=== PATIENT | female | born 1965 | race American Indian/Alaskan Native ===

== ENCOUNTER 2016-10-27 08:17 | Day surgery (SDC) | payer OTHER ==
--- NOTE | 2016-10-22 10:47 | Anesthesia Consultation ---
Anesthesia Consult and Med Hx Date of service: 10/27/16 - Airway Anesthetic Teeth Evaluation: Good ROM Head & Neck: Adequate Mental/Hyoid Distance: Adequate Mallampati Class: Class II Intubation Access Assessment: Probably Good - Pulmonary Exam CTA: Yes - Cardiac Exam Cardiac Exam: RRR - Pre-Operative Health Status ASA Pre-Surgery Classification: ASA3 Proposed Anesthetic Plan: General - Pulmonary Hx Asthma: Yes ("just a touch" not treated in yrs) - Cardiovascular System Hx Hypertension: Yes (since in her 40s) - Central Nervous System Hx Psychiatric Problems: No - Gastrointestinal Hx Gastroesophageal Reflux Disease: Yes (diet controlled) - Other Systems Hx Alcohol Use: Yes (occas) Hx Cancer: No Hx Obesity: Yes (BMI 48) - Additional Comments Anesthesia Medical History Comments: States she has panic attacks when stuck with needles.
[2016-10-22 10:58] LABS: Hematocrit 36.4 % (30.3-42.9); Hemoglobin 11.9 gm/dl (10.1-14.3); Mean Corpuscular HGB Conc 33 % (30-34); Mean Corpuscular Hemoglobin 28 pg (28-32); Mean Corpuscular Volume 84 fl (79-97); Platelet Count 296 K/mm3 (140-440); Red Blood Count 4.32 M/mm3 (3.65-5.03); Red Cell Distribution Width 14.9 % (13.2-15.2); White Blood Count 8.3 K/mm3 (4.5-11.0)
[2016-10-22 11:07] LABS: Anion Gap 15 mmol/L; Blood Urea Nitrogen 14 mg/dL (7-17); Calcium 8.7 mg/dL (8.4-10.2); Carbon Dioxide 26 mmol/L (22-30); Chloride 100.3 mmol/L (98-107); Glucose 113 mg/dL (65-100); Potassium 3.9 mmol/L (3.6-5.0); Sodium 137 mmol/L (137-145)
--- NOTE | 2016-10-26 16:57 | History and Physical Report ---
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 Operations: Negative Past Surgical History Abnormal PAP: negative Uterine Anomaly: positive fibroids Infection History Hx of STD: None Active Medications (reviewed today): IBUPROFEN 800 MG TABS (IBUPROFEN) 1 po TID (PRN) OXYCODONE-ACETAMINOPHEN 5-325 MG TABS (OXYCODONE-ACETAMINOPHEN) 1-2po q6h VITAMIN D 1000 UNIT TABS (CHOLECALCIFEROL) LOSARTAN POTASSIUM TABS (LOSARTAN POTASSIUM TABS) TRIAMTERENE-HCTZ CAPS (TRIAMTERENE-HCTZ CAPS) VERAPAMIL HCL TABS (VERAPAMIL HCL TABS) Current Allergies (reviewed today): No known allergies Past Medical History: Reviewed history from 10/01/2016 and no changes required: Hypertension torn ligament right shoulder after a fall Family History Summary: Reviewed history and no changes required: 10/26/2016 Aunt - Has Family History Breast Cancer - maternal, menopause - Entered On: 2016 Aunt - Has Family History of Colon Cancer - Maternal great - Entered On: 2016 Other family member - Has No Family History of Biliary Tract Cancer - Entered On : 10/06/2016 Other family member - Has No Family History of Brain Cancer - Entered On: 2016 Other family member - Has No Family History of DVT/PE on OCP - Entered On: 2016 Other family member - Has No Family History of Kidney/Urinary Tract Cancer - Entered On: 10/06/2016 Other family member - Has No Family History of Ovarvian Cancer - Entered On: 10/06 Other family member - Has No Family History of Pancreatic Cancer - Entered On: Other family member - Has No Family History of Stomach Cancer - Entered On: 2016 Other family member - Has No Family History of Small Bowel Cancer - Entered On: 10/06/2016 Other family member - Has No Family History of Uterine Cancer - Entered On: 2016 Social History: Reviewed history from 10/01/2016 and no changes required: Patient is single Smoking History: Patient has never smoked. Risk Factors: Smoked Tobacco Use: Never smoker Alcohol use: yes PAP Smear History: Date of Last PAP Smear: 10/01/2016 Review of Systems General Denies fever, chills, sweats, anorexia, fatigue, weakness, malaise, weight loss and sleep disorder. Complains of abnormal vaginal bleeding. Denies vaginal discharge, incontinence, dysuria, hematuria, urinary frequency, amenorrhea, menorrhagia, pelvic pain, genital sores, decreased libido , painful periods, painful sex, urinary urgency, hot flashes, vaginal dryness, vaginal itching and vaginal odor. CV Denies chest pains, palpitations, syncope, dyspnea on exertion, orthopnea, PND and peripheral edema. Resp Denies cough, dyspnea at rest, excessive sputum, hemoptysis, wheezing and pleurisy. GI Denies nausea, vomiting, diarrhea, constipation, change in bowel habits, abdominal pain, melena, hematochezia, jaundice, gas/bloating, indigestion/ heartburn, dysphagia and odynophagia. Endo Denies cold intolerance, heat intolerance, polydipsia, polyphagia, polyuria and unusual weight change. Breast Denies left breast lump, right breast lump, nipple discharge, bloody discharge from nipple, breast pain, abnormal mammogram and breast enlargement. MS Denies back pain, joint pain, joint swelling, muscle cramps, muscle weakness, stiffness, arthritis, sciatica, restless legs, leg pain at night and leg pain with exertion. Derm Denies rash, itching, dryness and suspicious lesions. Neuro Denies paralysis, paresthesias, headache, seizures, tremors, vertigo, transient blindness, frequent falls, frequent headaches and difficulty walking. Psych Denies depression, anxiety, irritability and mood swings. Eyes Denies blurring, diplopia, irritation, discharge, vision loss, eye pain and photophobia. ENT Denies earache, ear discharge, tinnitus, decreased hearing, nasal congestion, nosebleeds, sore throat and hoarseness. Allergy Denies urticaria, allergic rash, hay fever and recurrent infections. Heme Denies abnormal bruising, bleeding and enlarged lymph nodes. Physical Exam Appearance: well developed, well nourished, no acute distress Other Exams Breast exam: no masses or nipple discharge Lungs: no rales, rhonchi, or wheezes Heart: S1, S2, no murmur, rub, or gallop Abdomen: soft, non-tender, no masses, bowel sounds normal Appearance: obese Skin: no ulcers, xanthomas Lymph: no cervical, axillary, or inguinal adenopathy Extremities: normal alignment, no joint enlargement, crepitus, masses or tenderness; normal tone and strength Genitourinary Exam Vulva: normal, no lesions or discharge Urethral meatus: normal size and location, no lesions or discharge Urethra: no discharge Bladder: no cystocele Vagina: normal appearance, no discharge, lesions. No evidence of cystocele or rectocele. Cervix: normal appearance, no lesions, no discharge Uterus: unable to palpate Adnexa: unable to palpate due to obesity Impression & Recommendations: Problem # 1: Postmenopausal Bleeding (ICD-627.1) (VYM18-W30.0) She was unable to tolerate the in office SIS/EMB she desires to proceed with hysteroscopy D&C and other indicated procedures Her updated medication list for this problem includes: Ibuprofen 800 Mg Tabs (Ibuprofen) ..... 1 po tid (prn) Vitamin D 1000 Unit Tabs (Cholecalciferol) Consent reviewed and signed . Possible laparoscopy or laparotomy explained to patient. The risks and alternatives for this surgery were reviewed with the patient. She was informed of possible bleeding, infection, injury to bowel, bladder, ureters or other adjacent organs. The patient was instructed/informed the following: The normal length of hospital stay for this procedure. Nothing to eat or drink after midnight the evening prior to surgery. Clear liquids after lunch the day before surgery. Pre-op instruction sheets given. Wound care instructions given. Infection precautions reviewed, patient to call for any signs or symptoms of infection. The usual discomforts associated with this procedure were detailed. Proper use of pain medicines was reviewed. Patient was given ample opportunity to have all her questions answered before signing informed consent. Problem # 2: Fibroids of uterus; Intramural (ICD-218.1) (SAN15-E47.1) Her updated medication list for this problem includes: Ibuprofen 800 Mg Tabs (Ibuprofen) ..... 1 po tid (prn) Oxycodone-acetaminophen 5-325 Mg Tabs (Oxycodone-acetaminophen) ..... 1-2po q6h Medications Added to Medication List This Visit: 1) Ibuprofen 800 Mg Tabs (Ibuprofen) .... 1 po tid (prn) 2) Oxycodone-acetaminophen 5-325 Mg Tabs (Oxycodone-acetaminophen) .... 1-2po q6h Prescriptions: IBUPROFEN 800 MG TABS (IBUPROFEN) 1 po TID (PRN) #30 x 0 Entered and Authorized by: Swati Denton MD Method used: Print then Give to Patient RxID: [id number] OXYCODONE-ACETAMINOPHEN 5-325 MG TABS (OXYCODONE-ACETAMINOPHEN) 1-2po q6h #15 x 0 Entered and Authorized by: Swati Denton MD Method used: Print then Give to Patient RxID: [id number] Medications and Allergies Allergies Allergy/AdvReac Type Severity Reaction Status Date / Time No Known Allergies Allergy Unverified 10/21/16 14:34 Home Medications Medication Instructions Recorded Confirmed Last Taken Type Ergocalciferol(Vitamin D2)(Nf) 400 unit PO DAILY 10/21/16 10/21/16 Unknown History [Vitamin D (Nf)] Losartan [Cozaar] 100 mg PO QDAY 10/21/16 10/21/16 Unknown History Verapamil HCl [Verapamil] 240 mg PO DAILY 10/21/16 10/22/16 Unknown History Triamter/Hctz 37.5-25 mg 1 tab PO QDAY 10/22/16 10/22/16 Unknown History [Maxzide-25] Active Meds: Active Medications Famotidine (Pepcid) 20 mg IV PREOP NR Stop: 10/27/16 23:59 Sodium Chloride (Nacl 0.9% 1000 Ml) 1,000 mls @ 75 mls/hr IV DIRECT JANINE Cefazolin Sodium (Ancef/Sterile Water 2 Gm/20 Ml) 2 gm in 20 mls @ 80 mls/hr IV PREOP NR PRN Reason: Protocol Stop: 10/27/16 23:59 Midazolam HCl (Versed) 2 mg IV PREOP NR Stop: 10/27/16 23:59 Exam Vital Signs Temp Pulse Resp BP 98.2 F 80 14 132/86 10/22/16 10:20 10/22/16 10:20 10/22/16 10:20 10/22/16 10:20 Results - Labs 10/22/16 10:30 10/22/16 10:30 Assessment and Plan - Patient Problems (1) Postmenopausal bleeding Status: Acute
[~2016-10-27 08:17] MED LIST: ANCEF/STERILE WATER 2 GM/20 ML 2 GM/20 ML SYRINGE IV NR; DILAUDID ONE; DIPRIVAN 10 MG/ML IV ONE; NACL 0.9% 1000 ML 1,000 ML IV SCH; NACL BACTERIOSTATIC INFILTRATI ONE; PEPCID IV NR; VERSED IV NR
--- NOTE | 2016-10-27 08:28 | Anesthesia Day of Surgery ---
Anesthesia Day of Surgery - Day of Surgery Patient Examined: Yes Patient H&P Reviewed: Yes Patient is NPO: Yes
[2016-10-27] MEDS ORDERED: XYLOCAINE MPF 2% ONE (09:07)
[2016-10-27] MEDS ORDERED: ZOFRAN ONE (09:36)
[2016-10-27] MEDS ORDERED: NACL 0.9% IR ONE ×2 (09:45)
--- NOTE | 2016-10-27 10:03 | Operative Report ---
Operative Report Operative Report: Date of procedure: 10/27/2016 Pre-operative diagnosis: 1. Postmenopausal bleeding 2. Cervical stenosis 3. Fluid in the endometrial cavity 4. She unable to tolerate an office procedure Post-operative diagnosis: 1. Postmenopausal bleeding 2. Cervical stenosis 3. Fluid in the endometrial cavity 4. She unable to tolerate an office procedure Procedure name(s): Dilation and curettage with hysteroscopy Surgeon: Swati Denton MD Pipelines Laborer: Anesthesia: General anesthesia Findings: Cervical stenosis, grossly normal and neutral cavity, drainage of brown serous fluid from the cavity. Anesthesiologist: Dr. mario Plaza Complications: None EBL: Minimal Distension fliud: Normal Saline Fluid deficit: 100 mL normal saline Procedure: After risks, benefits, complications, consequences and alternatives for this procedure were discussed with the patient, and she voiced her understanding and desires to proceed she was taken to the OR where general anesthesia was induced. She was placed in the dorsal lithotomy position. Exam under anesthesia was unremarkable area. She was then prepped and draped in the usual sterile fashion. The bladder was drained of approximately 75 mL clear yellow urine. A weighted speculum was introduced into the vagina along with a Higinio retractor to visualize the cervix.. The anterior lip of the cervix was grasped with a single-tooth tenaculum, and the uterus was sounded to approximately 8 cm. The cervix was then progressively dilated to allow the diagnostic hysteroscope. With dilation of the cervix small amount of brown serous fluid draining from the cavity of the uterus. The hysteroscope was then introduced. No obvious evidence of perforation was noted. No obvious abnormalities were noted. Curettage was performed. Tissue was sent to pathology as a permanent. The hysteroscope was reintroduced into the uterine cavity. No obvious evidence of perforation was noted. Once the uterine cavity appeared to be clean the procedure was ended. All instruments were removed. No bleeding was noted from the tenaculum site. The patient tolerated the procedure well to recovery in stable condition. Counts were correct x3.
[2016-10-27] MEDS ORDERED: ZOFRAN IV PRN (10:06)
[2016-10-27] MEDS ORDERED: DILAUDID IV PRN (10:06)
--- NOTE | 2016-10-27 10:06 | Post Anesthesia Evaluation ---
- Post Anesthesia Evaluation Patient Participated: Yes Airway Patent: Yes Stable Respiratory Function: Yes Nausea/Vomiting: No Temp > 96.8F: Yes Pain Manageable: Yes Adequeate Hydration: Yes Anesthesia Complications: No Block Receding Appropriately: Not Applicable Patient on Ventilator: No
--- NOTE | 2016-10-27 10:07 | Discharge Summary ---
Providers - Providers Date of discharge: 10/27/16 Attending physician: DOLORES COCHRAN Primary care physician: ZAK ARREDONDO Hospitalization Condition: Good Disposition: DISCHARGED TO HOME OR SELFCARE - Discharge Diagnoses (1) Postmenopausal bleeding Status: Resolved Core Measure Documentation - Palliative Care Palliative Care/ Comfort Measures: Not Applicable - Core Measures Any of the following diagnoses?: none Exam - Constitutional Vitals: Temp Pulse Resp BP Pulse Ox 98.0 F 86 18 143/79 96 10/27/16 09:06 10/27/16 09:06 10/27/16 09:06 10/27/16 09:06 10/27/16 09:06 General appearance: Present: no acute distress - Respiratory Respiratory effort: normal - Cardiovascular Rhythm: regular - Extremities Extremities: no ischemia, No edema - Abdominal General gastrointestinal: Present: soft Female genitourinary: Present: deferred - Integumentary Integumentary: Present: clear, warm, dry - Psychiatric Psychiatric: appropriate mood/affect Plan Activity: other (No sex. Drink 100oz water a day, ambulate ~1mile a day on your property. Void frequently to keep bladder empty.) Weight Bearing Status: Weight Bear as Tolerated Diet: low salt Special Instructions: no heavy lifting Follow up with: ZAK ARREDONDO MD [Primary Care Provider] - 7 Days DOLORES COCHRAN MD [Staff Physician] - 11/04/16 10:15 am ([place])
[2016-10-27 11:16] VITALS: BP 111/71
== END 2016-10-27 11:32 | disposition home or self-care (01) ==
LOC: OR 08:17
PROVIDERS: ATTEND Obstetrics & Gynecology
DX: N95.0 Postmenopausal bleeding (principal); J45.909 Unspecified asthma, uncomplicated; N88.2 Stricture and stenosis of cervix uteri; I10 Essential (primary) hypertension; K21.9 Gastro-esophageal reflux disease without esophagitis; E66.01 Morbid (severe) obesity due to excess calories; Z68.42 Body mass index [BMI] 45.0-49.9, adult; Z80.0 Family history of malignant neoplasm of digestive organs; Z80.3 Family history of malignant neoplasm of breast; Z79.899 Other long term (current) drug therapy
CPT/HCPCS: 36415; 58558; 80048; 81025; 82962; 85027; 88305; A4217; J0690; J1170; J2250; J2405; J2704; J7030